=== PATIENT | female | born 1985 | race Caucasian/White ===

== ENCOUNTER 2017-04-15 20:00 | Emergency (ER) | payer SELFPAY, OTHER ==
[2017-04-15] MEDS ORDERED: Acetaminophen 325 MG TAB ONE (23:20)
--- NOTE | 2017-04-16 | RAD ---
THREE VIEWS OF THE LUMBAR SPINE 04/15/17 COMPARISON: None. HISTORY: Fall, trauma, pain. FINDINGS: Five lumbar type vertebral bodies are present with intact pedicles on frontal imaging. Vertebral body height and alignment appears normal within the lumbar spine. No acute fracture. IMPRESSION: No acute findings. POS: BG
== END 2017-04-16 00:35 | disposition home or self-care (01) ==
LOC: ERS 20:00
DX: S30.0XXA Contusion of lower back and pelvis, initial encounter (principal); S33.5XXA Sprain of ligaments of lumbar spine, initial encounter; F32.9 Major depressive disorder, single episode, unspecified; F41.9 Anxiety disorder, unspecified; F17.210 Nicotine dependence, cigarettes, uncomplicated; W17.89XA Other fall from one level to another, initial encounter
CPT/HCPCS: 72100